=== PATIENT | female | born 1945 | race Caucasian/White ===

== ENCOUNTER 2020-06-16 15:13 | Outpatient (CLI) | payer MEDICARE, OTHER | END 2020-06-16 15:14 | disposition home or self-care (01) | LOC: CSHMAMMO 15:13 | PROVIDERS: ATTEND Family Medicine | DX: Z12.31 Encounter for screening mammogram for malignant neoplasm of breast (principal) | CPT/HCPCS: 77063; 77067 ==

== ENCOUNTER 2020-12-24 08:47 | Outpatient (CLI) | payer MEDICARE, OTHER | END 2020-12-24 08:48 | disposition home or self-care (01) | LOC: CSHMAMMO 08:47 | PROVIDERS: ATTEND Family Medicine | DX: M85.89 Other specified disorders of bone density and structure, multiple sites (principal) | CPT/HCPCS: 77080 ==

== ENCOUNTER 2021-06-22 09:45 | Outpatient (CLI) | payer MEDICARE, OTHER | END 2021-06-22 09:46 | disposition home or self-care (01) | LOC: CSHMAMMO 09:45 | PROVIDERS: ATTEND Family Medicine | DX: Z12.31 Encounter for screening mammogram for malignant neoplasm of breast (principal); Z98.82 Breast implant status | CPT/HCPCS: 77063; 77067 ==

== ENCOUNTER 2022-06-23 09:03 | Outpatient (CLI) | payer MEDICARE, OTHER | END 2022-06-23 09:04 | disposition home or self-care (01) | LOC: CSHMAMMO 09:03 | PROVIDERS: ATTEND Family Medicine | DX: Z12.31 Encounter for screening mammogram for malignant neoplasm of breast (principal); Z98.82 Breast implant status | CPT/HCPCS: 77063; 77067 ==

== ENCOUNTER 2023-08-28 10:24 | Outpatient (CLI) | payer MEDICARE, OTHER ==
[2023-08-28 13:26] LABS: Hematocrit 38.3 % (34.9-44.5)
== END 2023-08-28 10:25 | disposition home or self-care (01) ==
LOC: CSHLAB 10:24
PROVIDERS: ATTEND Otolaryngology Plastic Surgery within the Head & Neck
DX: Z01.818 Encounter for other preprocedural examination (principal); K14.8 Other diseases of tongue
CPT/HCPCS: 85014; 85018; 93005; 93010

== ENCOUNTER 2023-08-31 06:56 | Day surgery (SDC) | payer MEDICARE, OTHER ==
[2023-08-28 11:21] VITALS: BMI 25.0
[2023-08-31] MEDS ORDERED: Triamcinolone 40 MG/ML VIAL ONE (08:22)
[2023-08-31] MEDS ORDERED: EPINEPHrine 1 MG/ML VIAL ONE (08:22)
[2023-08-31] MEDS ORDERED: Lidocaine 1% (PF) 30 ML VIAL ONE (09:19)
== END 2023-08-31 11:25 | disposition home or self-care (01) ==
LOC: CSHSDC 06:56
PROVIDERS: ATTEND Otolaryngology Plastic Surgery within the Head & Neck
PROC: 0CB70ZX Excision of Tongue, Open Approach, Diagnostic (ICD-10-PCS; principal; 2023-08-31)
DX: D00.07 Carcinoma in situ of tongue (principal); K21.9 Gastro-esophageal reflux disease without esophagitis; E03.9 Hypothyroidism, unspecified; E78.5 Hyperlipidemia, unspecified; Z79.82 Long term (current) use of aspirin; Z79.899 Other long term (current) drug therapy; Z79.890 Hormone replacement therapy; Z90.710 Acquired absence of both cervix and uterus; Z98.890 Other specified postprocedural states
CPT/HCPCS: 31541; 41112; J0171; J2001; 88305; 88323; J3301